=== PATIENT | male | born 1970 | race Caucasian/White ===

== ENCOUNTER 2017-08-18 10:05 | Emergency (ER) | payer OTHER ==
[~2017-08-18] VITALS: Ht 170.2 cm; Wt 76.7 kg
[2017-08-18 10:39] VITALS: BP 125/84; Ht 170.2 cm; Wt 76.7 kg
== END 2017-08-18 11:40 | disposition home or self-care (01) ==
LOC: ED 10:05
DX: J02.9 Acute pharyngitis, unspecified (principal)